=== PATIENT | male | born 1975 | race Caucasian/White ===

== ENCOUNTER 2021-01-17 19:35 | Emergency (ER) | payer MEDICAID ==
[~2021-01-17] VITALS: Ht 182.9 cm; Wt 113.4 kg
[2021-01-17 19:35] VITALS: BP 102/69
[2021-01-17] MEDS ORDERED: NACL 0.9% 2,000 ML IV ONE (19:50)
[2021-01-18 04:02] VITALS: BP 121/89
== END 2021-01-18 03:50 | disposition home or self-care (01) ==
LOC: MED 19:35
DX: R41.82 Altered mental status, unspecified (principal); F10.129 Alcohol abuse with intoxication, unspecified; F12.929 Cannabis use, unspecified with intoxication, unspecified; Y90.9 Presence of alcohol in blood, level not specified
CPT/HCPCS: 70450; 99285

== ENCOUNTER 2022-11-21 21:19 | Emergency (ER) | payer MEDICAID ==
[~2022-11-21] VITALS: Ht 170.2 cm; Wt 121.6 kg
[2022-11-21 21:47] VITALS: BP 124/79
--- NOTE | 2022-11-21 21:55 | NUR ---
COVID-19 and flu swabs collected and sent to lab.
--- NOTE | 2022-11-21 22:34 | NUR ---
Patient returned back from X-ray.
--- NOTE | 2022-11-21 23:05 | NUR ---
PT WALKED TO BED 11.
--- NOTE | 2022-11-21 23:11 | NUR ---
pt is here for coughing sometimes with the phlem other times it is dry, he has body ache, headache and neausead. he tested negative with covid at home. he doesnt have covid vacinne.
--- NOTE | 2022-11-21 23:19 | NUR ---
Dr. Castro examining patient.
[2022-11-21 23:56] VITALS: BP 122/79
--- NOTE | 2022-11-21 23:56 | NUR ---
Patient discharged with v/s stable. Written and verbal after care instructions given and explained. Patient verbalized understanding. Ambulatory with steady gait. All questions addressed prior to discharge. Advised to follow up with PMD.
== END 2022-11-21 23:56 | disposition home or self-care (01) ==
LOC: MED 21:19
DX: J06.9 Acute upper respiratory infection, unspecified (principal); Z20.822 Contact with and (suspected) exposure to COVID-19; B97.89 Other viral agents as the cause of diseases classified elsewhere; Z88.6 Allergy status to analgesic agent
CPT/HCPCS: 71045; 99284

== ENCOUNTER 2023-11-04 03:42 | Emergency (ER) | payer MEDICAID ==
[~2023-11-04] VITALS: Ht 170.2 cm; Wt 116.6 kg
[2023-11-04 03:45] VITALS: BP 103/59; PULSE 135; RESP 19; TEMP 100.5; O2SAT 94
[2023-11-04] MEDS ORDERED: NACL 0.9% 1,000 ML IV ONE (03:55)
[2023-11-04] MEDS ORDERED: ACETAMINOPHEN EXTRA STRENGTH 500 MG TAB PO ONE (03:55)
[2023-11-04 04:38] LABS: BASOPHILS # (AUTO) 0.1 K/uL (0.00-0.22); BASOPHILS % (AUTO) 0.4 % (0.0-2.0); EOSINOPHILS # (AUTO) 0.1 K/uL (0-0.4); EOSINOPHILS % (AUTO) 0.5 % (0.0-4.0); HEMATOCRIT 46.4 % (36-52); HEMOGLOBIN 15.9 g/dL (12.0-18.0); LYMPHOCYTES # (AUTO) 3.7 K/uL (2.0-11.5); MEAN CORPUSCULAR HEMOGLOBIN 32 pg (27-31); MEAN CORPUSCULAR HGB CONC 34 g/dL (33-37); MONOCYTES % (AUTO) 11.3 % (1.7-9.3); NEUTROPHILS # (AUTO) 11.6 K/uL (1.8-7.7); NEUTROPHILS % (AUTO) 66.8 % (42.2-75.2); PLATELET COUNT (AUTO) 230 K/uL (140-450); RED BLOOD CELL COUNT(AUTO) 5.04 MIL/uL (4.20-6.10); RED CELL DISTRIBUTION WIDTH 13.4 % (11.6-13.7); WHITE BLOOD COUNT (AUTO) 17.4 K/uL (4.8-10.8)
[2023-11-04 04:39] LABS: CALCIUM 8.4 mg/dL (8.5-10.1); CARBON DIOXIDE 23.8 mmol/L (21-32); CREATININE 1.2 mg/dL (0.6-1.3); POTASSIUM 3.8 mmol/L (3.5-5.1)
[2023-11-04] MEDS ORDERED: MORPHINE SULFATE 4 MG/ML SYR IVP ONE (05:15)
[2023-11-04 05:43] LABS: AMPHETAMINE, URINE POSITIVE ng/ml (NEG <=1000); BARBITURATE, URINE NEGATIVE ng/ml (NEG <=200)
[2023-11-04 05:44] LABS: BENZODIAZEPINE, URINE NEGATIVE ng/mL (NEG <=200); CANNABINOID, URINE NEGATIVE ng/mL (NEG <=50); COCAINE, URINE NEGATIVE ng/mL (NEG <=300); OPIATE, URINE POSITIVE ng/mL (NEG <=2000); PHENCYCLIDINE SCREEN,URINE NEGATIVE ng/mL (NEG <=25)
[2023-11-04 06:08] LABS: FLU A ANTIGEN negative (NEGATIVE); FLU B ANTIGEN negative (NEGATIVE)
[2023-11-04] MEDS ORDERED: ACET-10509 PO (06:19)
[2023-11-04] MEDS ORDERED: HYDROcodone/APAP 10/325 MG 1 TAB TAB PO STA (06:36)
[2023-11-04 06:49] VITALS: BP 101/59; PULSE 102; RESP 20; TEMP 98.6; O2SAT 98
[2023-11-04] MEDS ORDERED: DOXY-690 PO (21:33)
== END 2023-11-04 06:49 | disposition home or self-care (01) ==
LOC: MED 03:42
DX: J06.9 Acute upper respiratory infection, unspecified (principal); R51.9 Headache, unspecified; F15.10 Other stimulant abuse, uncomplicated; Z20.822 Contact with and (suspected) exposure to COVID-19; Z79.899 Other long term (current) drug therapy; Z79.2 Long term (current) use of antibiotics; Z88.6 Allergy status to analgesic agent
CPT/HCPCS: 36415; 71045; 80048; 80305; 85025; 87426; 87804; 96361; 96374; 99284; J2270; J7030; Q0092